=== PATIENT | female | born 1935 | race Caucasian/White ===

== ENCOUNTER 2018-11-04 15:41 | Emergency (ER) | payer MEDICARE ==
[~2018-11-04] VITALS: Ht 154.9 cm; Wt 67.7 kg
[~2018-11-04 15:41] MED LIST: BACL-19 PO; BUSP10TA PO
[2018-11-04 15:53] VITALS: BP 175/67
[2018-11-04 16:21] LABS: BASOPHILS # (AUTO) 0.04 x10^3/uL (0-0.1); BASOPHILS % (AUTO) 1 % (0-1); EOSINOPHILS # (AUTO) 0.32 x10^3/uL (0-0.4); EOSINOPHILS % (AUTO) 5 % (1-7); LYMPHOCYTES # (AUTO) 1.86 x10^3/uL (1-3.4); LYMPHOCYTES % (AUTO) 28 % (22-44); MD NO; MEAN CORPUSCULAR HEMOGLOBIN 30.4 pg (27.0-34.8); MEAN CORPUSCULAR HGB CONC 33.7 g/dL (32.4-35.8); MEAN CORPUSCULAR VOLUME 90.3 fL (80-100); MONOCYTES # (AUTO) 0.69 x10^3/uL (0.2-0.8); MONOCYTES % (AUTO) 10 % (2-9); NEUTROPHILS # (AUTO) 3.84 x10^3/uL (1.8-6.8); NEUTROPHILS % (AUTO) 57 % (42-75); PLATELET COUNT 218 x10^3/uL (130-400); RED CELL DISTRIBUTION WIDTH 13.6 % (9.6-15.2)
[2018-11-04 16:32] LABS: ALANINE AMINOTRANSFERASE 21 U/L (12-78); ALBUMIN 3.6 g/dL (3.4-5.0); ANION GAP 5 mmol/L (5-15); CALCIUM 9.5 mg/dL (8.5-10.1); CHLORIDE 108 mmol/L (98-107); CREATININE 0.98 mg/dL (0.55-1.02)
[2018-11-04 16:35] LABS: ALKALINE PHOSPHATASE 58 U/L (45-117); BILIRUBIN,TOTAL 0.2 mg/dL (0.2-1.0); TOTAL PROTEIN 7.4 g/dL (6.4-8.2)
--- NOTE | 2018-11-04 17:19 | NUR ---
FROM LOBBY TO ROOM AT THIS TIME
--- NOTE | 2018-11-04 17:21 | NUR ---
Assumed care of patient. C/O bilat knee pain worsening since xmas. Placed on NIBP and pulse ox. at bedside. Will continue to monitor.
--- NOTE | 2018-11-04 18:49 | NUR ---
Patient/Caregiver given discharge instructions and they have confirmed that they understand the instructions. Patient ambulatory with steady gait.
== END 2018-11-04 18:50 | disposition home or self-care (01) ==
LOC: ED 18:10
DX: M17.0 Bilateral primary osteoarthritis of knee (principal); E11.9 Type 2 diabetes mellitus without complications; I25.10 Atherosclerotic heart disease of native coronary artery without angina pectoris; I10 Essential (primary) hypertension; E78.5 Hyperlipidemia, unspecified; Z87.891 Personal history of nicotine dependence
CPT/HCPCS: 36415; 80053; 85025; 99283

== ENCOUNTER 2018-12-17 16:21 | Emergency (ER) | payer MEDICARE ==
[~2018-12-17] VITALS: Ht 152.4 cm; Wt 56.9 kg
[2018-12-17] MEDS ORDERED: ACETAMINOPHEN 500 MG TABLET PO ONE (17:30)
[2018-12-17] MEDS ORDERED: ACETAMINOPHEN 500 MG TABLET ONE (17:34)
[2018-12-17 19:07] VITALS: BP 149/65
--- NOTE | 2018-12-17 19:10 | NUR ---
Patient/Caregiver given discharge instructions and they have confirmed that they understand the instructions. Patient ambulatory with steady gait.
== END 2018-12-17 19:10 | disposition home or self-care (01) ==
LOC: ED 18:54
DX: S00.03XA Contusion of scalp, initial encounter (principal); S20.212A Contusion of left front wall of thorax, initial encounter; E78.5 Hyperlipidemia, unspecified; E11.8 Type 2 diabetes mellitus with unspecified complications; K21.9 Gastro-esophageal reflux disease without esophagitis; M19.90 Unspecified osteoarthritis, unspecified site; I25.10 Atherosclerotic heart disease of native coronary artery without angina pectoris; I10 Essential (primary) hypertension; R51 Headache; Z95.1 Presence of aortocoronary bypass graft; W01.0XXA Fall on same level from slipping, tripping and stumbling without subsequent striking against object, initial encounter; Y93.89 Activity, other specified; Y92.009 Unspecified place in unspecified non-institutional (private) residence as the place of occurrence of the external cause; Y99.8 Other external cause status
CPT/HCPCS: 70450; 99284

== ENCOUNTER 2019-11-26 17:38 | Emergency (ER) | payer MEDICARE ==
[~2019-11-26] VITALS: Ht 152.4 cm; Wt 60.9 kg
[~2019-11-26 17:38] MED LIST changes: +LISI5TAB7 PO; +METF500T17 PO; +OXYB5TAB10 PO; +RANI-467 PO; +ROPI2TAB8 PO; +SIMV10TA18 PO
--- NOTE | 2019-11-26 19:20 | NUR ---
PT AMBULATORY TO ED ROOM 37, ACCOMPANIED BY SPOUSE.
--- NOTE | 2019-11-26 19:22 | NUR ---
PT A&OX 4, RESP EVEN & UNLABORED, SPEECH CLEAR, SKIN WNL. C/O GARCIA'S AND NECK PAIN. STATES GARCIA AND POSTERIOR NECK PAIN X 1 WEEK. ASPIRIN (LAST DOSE: THIS MORNING) AND TYLENOL (LAST DOSE: THIS MORNING) TAKEN FOR PAIN. DENIES N/V, RECENT FALLS, HX MIGRAINES.
--- NOTE | 2019-11-26 19:25 | NUR ---
NATI ENCARNACION BS FOR EXAM.
[2019-11-26] MEDS ORDERED: CITA10TA4 PO (19:29)
[2019-11-26] MEDS ORDERED: ONDANSETRON ODT 4 MG ONE (19:45)
[2019-11-26] MEDS ORDERED: ACETAMINOPHEN 325 MG TABLET ONE (19:45)
[2019-11-26] MEDS ORDERED: DIPHENHYDRAMINE 25 MG CAPSULE ONE (19:46)
--- NOTE | 2019-11-26 19:56 | NUR ---
AMBULATORY TO & FROM ROOM BR W/OUT INCIDENT; GAIT STEADY USING OWN CANE. VOIDED SPECIMEN PROVIDED.
--- NOTE | 2019-11-26 19:58 | NUR ---
TYLENOL, BENADRYL AND ZOFRAN GIVEN PER EMAR.
--- NOTE | 2019-11-26 19:59 | NUR ---
TO CT PER XAVIER
[2019-11-26] MEDS ORDERED: ONDANSETRON ODT 4 MG PO ONE (20:00)
[2019-11-26] MEDS ORDERED: ACETAMINOPHEN 325 MG TABLET PO ONE (20:00)
[2019-11-26] MEDS ORDERED: DIPHENHYDRAMINE 25 MG CAPSULE PO ONE (20:00)
[2019-11-26] MEDS ORDERED: MORPHINE SULFATE 4 MG/ML, 1ML IVPush PRN (21:00)
[2019-11-26] MEDS ORDERED: ENALAPRILAT 1.25 MG/ML, 2ML IV ONE (21:00)
[2019-11-26] MEDS ORDERED: SODIUM CHLORIDE FLUSH 10ML SYR IVF ONE (21:00)
[2019-11-26] MEDS ORDERED: ENALAPRILAT 1.25 MG/ML, 1ML ONE (21:52)
--- NOTE | 2019-11-26 22:10 | NUR ---
PT REPORT GIVEN TO ALANIS STAHL. PT CARE TRANSFERRED. PT'S UNOPENED CATAPRES AND VASOTEC GIVEN TO FAVIO FOR ADMINISTRATION.
--- NOTE | 2019-11-26 22:18 | NUR ---
REPORT RECEIVED FROM ALANIS MACHADO. PT RESTING ON GURNEY. STATES SHE IS FEELING BETTER, HER GARCIA HAS RESOLVED. HER BP HAS ALSO DECREASED. SHE DID NOT RECEIVE THE PAIN MEDS ORDERED OR THE BP MEDS. PER UBALDO ENCARNACION SHE WILL LIKELY BE DISCHARGED. PT REQUESTS TO SPEAK WITH ERP. ERP AWARE
--- NOTE | 2019-11-26 22:24 | NUR ---
SPOKE WITH THE PATIENT'S SON, NEDRA. HE STATES HE LIVES WITH THE PT AND WILL BE HOME IF SHE GETS DISCHARGED. HIS NUMBER IS [phone]
[2019-11-26 22:25] VITALS: BP 163/70
--- NOTE | 2019-11-26 23:09 | NUR ---
Patient/Caregiver given discharge instructions and they have confirmed that they understand the instructions. Patient ambulatory with steady gait.
--- NOTE | 2019-11-26 23:09 | NUR ---
PT PROVIDED WITH A CAB VOUCHER. CONTACTED SON TO LET HIM KNOW THE PT WILL BE COMING HOME VIA CAB. HE STATES HE WILL BE HOME AND WAITING FOR HER.
== END 2019-11-26 23:11 | disposition home or self-care (01) ==
LOC: ED 21:41
DX: F41.1 Generalized anxiety disorder (principal); I10 Essential (primary) hypertension; R51 Headache; K21.9 Gastro-esophageal reflux disease without esophagitis; I25.10 Atherosclerotic heart disease of native coronary artery without angina pectoris; M19.90 Unspecified osteoarthritis, unspecified site; E11.65 Type 2 diabetes mellitus with hyperglycemia; E78.5 Hyperlipidemia, unspecified; Z95.1 Presence of aortocoronary bypass graft
CPT/HCPCS: 70450; 93005; 99284; Q0162; Q0163

== ENCOUNTER 2020-03-08 12:23 | Emergency (ER) | payer MEDICARE ==
[~2020-03-08] VITALS: Ht 162.6 cm; Wt 60.0 kg
[~2020-03-08 12:23] MED LIST changes: +CITA10TA4 PO
--- NOTE | 2020-03-08 13:21 | NUR ---
pt daughter: Jyoti [phone]
[2020-03-08] MEDS ORDERED: MAALOX/HYOSCYAMINE/LIDOCAINE 45 ML BTL PO ONE (13:30)
[2020-03-08] MEDS ORDERED: SODIUM CHLORIDE FLUSH 10ML SYR IVF ONE (13:30)
[2020-03-08] MEDS ORDERED: MAALOX/HYOSCYAMINE/LIDOCAINE 45 ML BTL ONE (13:34)
[2020-03-08 13:53] LABS: BASOPHILS # (AUTO) 0.03 x10^3/uL (0-0.1); BASOPHILS % (AUTO) 1 % (0-1); EOSINOPHILS # (AUTO) 0.35 x10^3/uL (0-0.4); EOSINOPHILS % (AUTO) 6 % (1-7); LYMPHOCYTES % (AUTO) 28 % (22-44); MD NO; MEAN CORPUSCULAR HEMOGLOBIN 29.3 pg (27.0-34.8); MEAN CORPUSCULAR HGB CONC 32.6 g/dL (32.4-35.8); MEAN PLATELET VOLUME 8.2 fL (7.4-10.4); MONOCYTES # (AUTO) 0.56 x10^3/uL (0.2-0.8); MONOCYTES % (AUTO) 9 % (2-9); NEUTROPHILS # (AUTO) 3.63 x10^3/uL (1.8-6.8); NEUTROPHILS % (AUTO) 57 % (42-75); PLATELET COUNT 205 x10^3/uL (130-400); RED BLOOD COUNT 4.36 x10^6/uL (3.82-5.3); RED CELL DISTRIBUTION WIDTH 13.3 % (9.6-15.2)
[2020-03-08 14:02] LABS: ALBUMIN 3.3 g/dL (3.4-5.0); ANION GAP 5 mmol/L (5-15); CALCIUM 9.1 mg/dL (8.5-10.1); CHLORIDE 107 mmol/L (98-107)
[2020-03-08 14:07] LABS: ALANINE AMINOTRANSFERASE 14 U/L (12-78); ALKALINE PHOSPHATASE 57 U/L (45-117); BILIRUBIN,TOTAL 0.4 mg/dL (0.2-1.0); CREATININE 1.07 mg/dL (0.55-1.02); TOTAL PROTEIN 7.3 g/dL (6.4-8.2); TROPONIN I < 0.015 ng/mL (0.000-0.045)
--- NOTE | 2020-03-08 15:02 | NUR ---
TASK RN NOTE: PT UP FOR RECHECK. NAD NOTED AT THIS TIME. TELEVISION ON. PT RECLINED BACK IN BED, SIDE RAILS UP, CALL LIGHT IN REACH. LIGHTS DIMMED FOR PT COMFORT.
[2020-03-08 15:24] VITALS: BP 93/51
== END 2020-03-08 15:43 | disposition home or self-care (01) ==
LOC: ED 15:30
DX: K29.00 Acute gastritis without bleeding (principal); R07.9 Chest pain, unspecified; R06.02 Shortness of breath; R94.31 Abnormal electrocardiogram [ECG] [EKG]; I25.10 Atherosclerotic heart disease of native coronary artery without angina pectoris; I10 Essential (primary) hypertension; E11.9 Type 2 diabetes mellitus without complications; E78.5 Hyperlipidemia, unspecified; M19.90 Unspecified osteoarthritis, unspecified site; Z95.1 Presence of aortocoronary bypass graft
CPT/HCPCS: 36415; 71045; 80053; 83690; 84484; 85025; 93005; 99285

== ENCOUNTER 2020-04-08 19:01 | Emergency (ER) | payer MEDICARE ==
[~2020-04-08] VITALS: Ht 154.9 cm; Wt 60.7 kg
--- NOTE | 2020-04-08 19:13 | NUR ---
FSBS MACHINE NOT WORKING IN TRIAGE
--- NOTE | 2020-04-08 19:47 | NUR ---
PT AMBULATORY TO [facility] W/ ASSIST FROM DAUGHTER. PT'S GAIT SLOW & STEADY. RETURNED TO ROOM W/OUT INCIDENT. VOIDED SPECIMEN PROVIDED. PT C/O NEED FOR OXYGEN; STATES SHE USES 2L O2 AT HOME, THAT IT HELPS W/ CP THAT SHE FEELS WHEN WALKING. O2 SAT 97%RA. O2 2LNC APPLIED
[2020-04-08] MEDS ORDERED: LISI10TA2 PO (19:56)
--- NOTE | 2020-04-08 19:58 | NUR ---
DAUGHTER STATES PT RECEIVED A STEROID INJECTION ON 04/07; STATES PT'S BLOOD SUGAR ALWAYS GOES UP AFTER THE INJECTIONS; STATES STEROID INJECTIONS ARE EVERY 6 MONTHS. PT STATES SHE TAKES METFORMIN ONLY ONCE DAILY INSTEAD OF BID.
[2020-04-08] MEDS ORDERED: ASPI-496 PO (20:01)
[2020-04-08] MEDS ORDERED: CITA20TA6 PO (20:01)
[2020-04-08 20:12] LABS: MICROSCOPIC NOT IND
[2020-04-08 20:19] LABS: BASOPHILS # (AUTO) 0.03 x10^3/uL (0-0.1); BASOPHILS % (AUTO) 0 % (0-1); EOSINOPHILS # (AUTO) 0.01 x10^3/uL (0-0.4); EOSINOPHILS % (AUTO) 0 % (1-7); LYMPHOCYTES % (AUTO) 6 % (22-44); MD NO; MEAN CORPUSCULAR HEMOGLOBIN 29.1 pg (27.0-34.8); MEAN CORPUSCULAR HGB CONC 32.8 g/dL (32.4-35.8); MEAN CORPUSCULAR VOLUME 88.7 fL (80-100); MEAN PLATELET VOLUME 8.3 fL (7.4-10.4); MONOCYTES # (AUTO) 0.54 x10^3/uL (0.2-0.8); MONOCYTES % (AUTO) 5 % (2-9); NEUTROPHILS # (AUTO) 9.69 x10^3/uL (1.8-6.8); NEUTROPHILS % (AUTO) 88 % (42-75); PLATELET COUNT 241 x10^3/uL (130-400); RED BLOOD COUNT 4.42 x10^6/uL (3.82-5.3); RED CELL DISTRIBUTION WIDTH 13.6 % (9.6-15.2)
[2020-04-08 20:20] LABS: PH, VENOUS 7.393 pH (7.320-7.420)
[2020-04-08] MEDS ORDERED: STEROID (20:22)
[2020-04-08 20:31] LABS: ALANINE AMINOTRANSFERASE 18 U/L (12-78); ALBUMIN 3.5 g/dL (3.4-5.0); ANION GAP 8 mmol/L (5-15); CALCIUM 9.1 mg/dL (8.5-10.1); CHLORIDE 99 mmol/L (98-107); CREATININE 1.12 mg/dL (0.55-1.02)
[2020-04-08 20:35] LABS: ACETONE, SERUM Negative (Negative)
[2020-04-08 20:36] LABS: ALKALINE PHOSPHATASE 61 U/L (45-117); BILIRUBIN,TOTAL 0.1 mg/dL (0.2-1.0); TOTAL PROTEIN 7.8 g/dL (6.4-8.2)
[2020-04-08] MEDS ORDERED: INSULIN REGULAR 100 UNITS/ML, 3ML VIAL SQ-INSULIN ONE (21:00)
[2020-04-08] MEDS ORDERED: INSULIN SINGLE DOSE, ER ONE (21:25)
--- NOTE | 2020-04-08 21:30 | NUR ---
INSULIN GIVEN PER EMAR; DOSE VERIFIED W/ ALANIS ADAMS.
--- NOTE | 2020-04-08 21:44 | NUR ---
AMBULATORY TO & FROM [facility] W/ ASSIST FROM DAUGHTER. PT DENIES DYSPNEA, SOB W/ RETURN TO ROOM.
--- NOTE | 2020-04-08 22:04 | NUR ---
REPORT RECIEVED, PT RESTING IN BED WITH NO COMPLAINTS, VSS
--- NOTE | 2020-04-08 22:16 | NUR ---
REPORT FROM ALANIS ERICKSON. PT CARE RESPONSIBILITIES ASSUMED.
[2020-04-08 22:33] VITALS: BP 164/66
== END 2020-04-08 22:44 | disposition home or self-care (01) ==
LOC: ED 20:50
DX: E11.65 Type 2 diabetes mellitus with hyperglycemia (principal); M79.632 Pain in left forearm; R06.02 Shortness of breath; R94.31 Abnormal electrocardiogram [ECG] [EKG]; I10 Essential (primary) hypertension; M19.90 Unspecified osteoarthritis, unspecified site; J44.9 Chronic obstructive pulmonary disease, unspecified; Z95.1 Presence of aortocoronary bypass graft; X50.0XXA Overexertion from strenuous movement or load, initial encounter; Y93.89 Activity, other specified; Y92.009 Unspecified place in unspecified non-institutional (private) residence as the place of occurrence of the external cause; Y99.8 Other external cause status
CPT/HCPCS: 36415; 71045; 80053; 81003; 82010; 82803; 82962; 83690; 83880; 85025; 93005; 99285; J1815